=== PATIENT | male | born 1970 | race Caucasian/White ===

== ENCOUNTER 2017-11-16 06:55 | Day surgery (SDC) | payer MEDICARE, MEDICAID ==
[2017-11-16] MEDS ORDERED: PROPOFOL 500 MG/50 ML EMU IV ONE (07:46)
[2017-11-16] MEDS ORDERED: LIDOCAINE HCL 1% MPF 30 SOL ONE (07:46)
[2017-11-16 09:13] VITALS: BP 113/72; RESP 18
[2017-11-16 09:43] VITALS: PULSE 74; TEMP 97.4; O2SAT 100
== END 2017-11-16 10:10 | disposition home or self-care (01) | DRG 951 ==
LOC: SURG 06:55
PROVIDERS: ATTEND Surgery
DX: Z12.11 Encounter for screening for malignant neoplasm of colon (principal); E11.9 Type 2 diabetes mellitus without complications; K62.5 Hemorrhage of anus and rectum; K31.7 Polyp of stomach and duodenum
CPT/HCPCS: J2001; J2704